=== PATIENT | female | born 2000 | race Caucasian/White ===

== ENCOUNTER 2024-02-16 13:32 | Observation (INO) | payer BC ==
[2024-02-16 14:18] LABS: EOSINOPHILS ABSOLUTE AUTO 0.06 K/uL (0.00-0.45); EOSINOPHILS PERCENT AUTO 0.6 % (0.0-6.0); HEMATOCRIT 39.7 % (37.0-47.0); HEMOGLOBIN 14.2 g/dL (12.0-16.0); IMMATURE GRAN ABSOLUTE AUTO 0.03 K/uL (0.00-0.05); IMMATURE GRAN PERCENT AUTO 0.3 % (0.0-0.4); LYMPHOCYTES ABSOLUTE AUTO 1.13 K/uL (1.00-4.80); LYMPHOCYTES PERCENT AUTO 11.5 % (24.0-44.0); MEAN CORPUSCULAR HEMOGLOBIN 30.4 pg (28.0-32.0); MEAN CORPUSCULAR HGB CONC 35.8 g/dL (32.0-36.0); MONOCYTES ABSOLUTE AUTO 0.63 K/uL (0.00-0.80); MONOCYTES PERCENT AUTO 6.4 % (0.0-8.0); NEUTROPHILS ABSOLUTE AUTO 7.86 K/uL (1.80-7.70); NEUTROPHILS PERCENT AUTO 80.2 % (41.0-71.0); PLATELET COUNT,PLT 341 K/uL (150-400); RED BLOOD CELL COUNT 4.67 M/uL (4.10-5.30); WHITE BLOOD CELL COUNT,WBC 9.81 K/uL (3.9-11.3)
[2024-02-16 14:54] LABS: A/G RATIO 1.2 (0.9-1.6); ALBUMIN 4.4 g/dL (3.4-5.0); BILIRUBIN TOTAL 0.6 mg/dL (0.2-1.0); CALCIUM 9.3 mg/dL (8.5-10.1); CARBON DIOXIDE,CO2 25.6 mmol/L (21.0-32.0); CREATININE 0.6 mg/dL (0.6-1.0); EST CRCL DRUG DOSING (CG) 130.53 mL/min; POTASSIUM,K 4.1 mmol/L (3.5-5.1); PROTEIN TOTAL,TP 8.1 g/dL (6.4-8.2)
[2024-02-16 16:23] LABS: APPEARANCE,URINE CLEAR; BILIRUBIN,URINE NEGATIVE (NEGATIVE); COLOR,URINE YELLOW; GLUCOSE,URINE NEGATIVE (NEGATIVE); KETONES,URINE NEGATIVE (NEGATIVE); LEUKOCYTE ESTERASE,URINE NEGATIVE (NEGATIVE); NITRITE,URINE NEGATIVE (NEGATIVE); OCCULT BLOOD,URINE SMALL (NEGATIVE); PROTEIN,URINE NEGATIVE (NEGATIVE); UROBILINOGEN,URINE 0.2 EU/dL (<2.0)
[2024-02-16 16:45] LABS: BACTERIA,URINE RARE (NEGATIVE); EPITHELIAL CELLS,URINE RARE (NONE-FEW); RBC,URINE 0-1 (0-2/HPF); WBC,URINE 0-1 (0-5/HPF)
[2024-02-16] MEDS: Acetaminophen 500 MG Tab PO ONE (18:29)
[2024-02-16] MEDS: Sodium Chloride 0.9% 1,000 ML IV SCH (18:30)
[2024-02-16] MEDS ORDERED: Sodium Chloride 0.9% 10 ML Syringe FLUSH PRN (18:34)
[2024-02-16] MEDS ORDERED: Sodium Chloride 0.9% 20 ML SDV IV PRN (18:34)
[2024-02-16] MEDS ORDERED: Sodium Chloride 0.9% 2.5 ML Syringe FLUSH PRN (18:34)
[2024-02-17 06:22] LABS: HEMATOCRIT 34.4 % (37.0-47.0); MEAN CORPUSCULAR HEMOGLOBIN 30.4 pg (28.0-32.0); MEAN CORPUSCULAR HGB CONC 34.9 g/dL (32.0-36.0); MEAN CORPUSCULAR VOLUME 87.1 fL (83.0-99.0); MEAN PLATELET VOLUME 9.4 fL (9.4-12.3); PLATELET COUNT,PLT 280 K/uL (150-400); RED BLOOD CELL COUNT 3.95 M/uL (4.10-5.30); WHITE BLOOD CELL COUNT,WBC 6.14 K/uL (3.9-11.3)
[2024-02-17] MEDS ORDERED: Sodium Chloride 0.9% 2.5 ML Syringe FLUSH PRN (07:50)
[2024-02-17] MEDS ORDERED: Sodium Chloride 0.9% 20 ML SDV IV PRN (07:50)
[2024-02-17] MEDS ORDERED: Sodium Chloride 0.9% 10 ML Syringe FLUSH PRN (07:50)
[2024-02-17] MEDS ORDERED: Morphine 4 MG/ML Syringe IVPUSH PRN (08:51)
[2024-02-17] MEDS ORDERED: Acetaminophen/oxyCODONE 325-5 MG Tab PO PRN ×2 (08:51)
[2024-02-17] MEDS ORDERED: Ondansetron 4 MG/2 ML SDV IVPUSH PRN (08:51)
[2024-02-17] MEDS ORDERED: propofoL 500 MG/50 ML 50 ML ONE (09:00)
[2024-02-17] MEDS ORDERED: Propofol 200 MG/20 ML SDV ONE (09:01)
[2024-02-17] MEDS ORDERED: fentaNYL 100 MCG/2 ML SDV ONE (09:01)
[2024-02-17] MEDS ORDERED: dexmedeTOMIDine HCl 200 MCG/2 ML SDV ONE (09:04)
[2024-02-17] MEDS ORDERED: Sodium Chloride 0.9% 20 ML ONE (09:04)
[2024-02-17] MEDS ORDERED: Bupivacaine 0.25% 30 ML SDV ONE ×2 (09:14→09:23)
[2024-02-17] MEDS ORDERED: Bupivacaine 0.5% 30 ML SDV ONE (09:22)
[2024-02-17] MEDS ORDERED: Lidocaine 1% 50 ML MDV ONE (09:23)
[2024-02-17] MEDS ORDERED: Dexamethasone 4 MG/ML 5 ML MDV ONE (10:01)
[2024-02-17] MEDS ORDERED: Ondansetron 4 MG/2 ML SDV ONE (10:01)
[2024-02-17] MEDS ORDERED: Ketamine HCL/NACL, ISO-OSM 50 MG/5 ML Syringe ONE (10:09)
[2024-02-17] MEDS ORDERED: Sugammadex Sodium 200 MG/2 ML VIAL IV ONE (10:32)
[2024-02-17] MEDS ORDERED: Ketorolac 30 MG/ML SDV ONE (10:32)
[2024-02-17] MEDS: Ketorolac 30 MG/ML SDV IVPUSH ONE (12:12)
[2024-02-17] MEDS ORDERED: Ibuprofen 800 MG Tab PO PRN (15:00)
== END 2024-02-17 14:10 | disposition home or self-care (01) ==
LOC: MW.ED 13:32 → MW.MS 17:07
PROVIDERS: ADMIT Family Medicine; ATTEND Obstetrics & Gynecology
DX: O00.102 Left tubal pregnancy without intrauterine pregnancy (principal); O02.81 Inappropriate change in quantitative human chorionic gonadotropin (hCG) in early pregnancy
CPT/HCPCS: 36415; 49406; 59151; 76817; 80053; 81001; 84132; 84702; 85025; 85027; 86900; 86901; 96360; 96361; 99285; A9270; C1729; G0378; J0131; J0665; J1100; J1885; J2405; J2704; J3010; J7030; 00840; 64488; J3490